=== PATIENT | female | born 1990 | race Caucasian/White ===

== ENCOUNTER 2018-04-29 10:46 | Emergency (ER) | payer MEDICAID, OTHER ==
[~2018-04-29] VITALS: Ht 180.3 cm; Wt 106.8 kg
[2018-04-29 11:14] VITALS: BP 134/74
[2018-04-29] MEDS ORDERED: LORA-269 PO (11:41)
== END 2018-04-29 12:12 | disposition home or self-care (01) ==
LOC: ER 10:47
DX: F41.0 Panic disorder [episodic paroxysmal anxiety] (principal); F32.9 Major depressive disorder, single episode, unspecified; F17.200 Nicotine dependence, unspecified, uncomplicated; F12.90 Cannabis use, unspecified, uncomplicated; Z88.2 Allergy status to sulfonamides
CPT/HCPCS: 99284